=== PATIENT | male | born 1965 | race Asian ===

== ENCOUNTER 2023-08-13 18:02 | Emergency (ER) | payer OTHER ==
[~2023-08-13] VITALS: Ht 172.7 cm; Wt 76.2 kg
[2023-08-13 18:25] VITALS: BP 159/102; TEMP 98.4; O2SAT 99
[2023-08-13 19:19] LABS: BASOPHILS # (AUTO) 0.4 K/uL (0.0-0.2); EOSINOPHILS # (AUTO) 0.2 K/uL (0.0-0.7); EOSINOPHILS % (AUTO) 2.7 % (0.0-6.0); HEMATOCRIT 50 % (39-51); HEMOGLOBIN 16.7 g/dL (13.5-17.5); LYMPHOCYTES # (AUTO) 0.9 K/uL (0.8-4.8); LYMPHOCYTES % (AUTO) 16.3 % (20.0-44.0); MEAN CORPUSCULAR HEMOGLOBIN 29 PG (26.0-33.0); MEAN CORPUSCULAR HGB CONC 34 g/dl (31.0-36.0); MEAN CORPUSCULAR VOLUME 87 fL (80-96); MONOCYTES # (AUTO) 0.3 K/uL (0.1-1.30); MONOCYTES % (AUTO) 4.8 % (2.0-12.0); NEUTROPHILS # (AUTO) 3.9 K/uL (1.8-8.9); NEUTROPHILS % (AUTO) 69.7 % (43.0-81.0); PLATELET COUNT (AUTO) 267 K/uL (150-450); RED BLOOD CELL COUNT(AUTO) 5.72 MIL/uL (4.5-6.0); RED CELL DISTRIBUTION WIDTH 13.3 % (11.5-15.0); WHITE BLOOD COUNT (AUTO) 5.6 K/uL (4.3-11.0)
[2023-08-13 19:29] LABS: BASOPHILS % (AUTO) 6.5 % (0.0-2.0)
[2023-08-13 19:34] LABS: CALCIUM, SERUM 9.3 mg/dL (8.5-10.1); CARBON DIOXIDE 28 mmol/L (21-32); CHLORIDE 102 mmol/L (98-107); CREATININE 0.9 mg/dL (0.6-1.3); GLUCOSE 106 mg/dL (74-106); POTASSIUM 4.3 mmol/L (3.5-5.1); SODIUM SERUM 138 mmol/L (136-145); UREA NITROGEN, BLOOD 11 mg/dL (7-18)
[2023-08-13 19:45] LABS: ALANINE AMINOTRANSFERASE 51 U/L (12-78); ALBUMIN 4.7 g/dL (3.4-5.0); ALKALINE PHOSPHATASE 84 U/L (46-116); ASPARTATE AMINOTRANSFERASE 30 U/L (15-37); BILIRUBIN,DIRECT 0.2 mg/dL (0.0-0.2); BILIRUBIN,TOTAL 0.5 mg/dL (0.2-1.0); NT-PRO BNP 10 pg/mL (0-125); TOTAL PROTEIN, SERUM 8.7 g/dL (6.4-8.2)
[2023-08-13] MEDS ORDERED: NITROGLYCERIN PACKET 1 GM PACKET ONE (21:29)
[2023-08-13] MEDS ORDERED: ASPIRIN EC 325 MG TABLET.DR PO ONE (21:30)
[2023-08-13] MEDS: ASPIRIN 325 MG TABLET PO ONE (21:33)
[2023-08-13] MEDS: NITROGLYCERIN PACKET 1 GM PACKET TD ONE (21:33)
== END 2023-08-13 21:41 | disposition left against medical advice (07) ==
LOC: ER 18:07
DX: R07.9 Chest pain, unspecified (principal); R06.02 Shortness of breath; I10 Essential (primary) hypertension
CPT/HCPCS: 36415; 71045-TC; 80048-TC; 80076-TC; 83880; 84484-TC; 85025-TC; 85378-TC